=== PATIENT | male | born 1980 | race Caucasian/White ===

== ENCOUNTER 2020-06-10 19:03 | Inpatient (IN) | payer MEDICAID ==
[~2020-06-10] VITALS: Ht 170.2 cm; Wt 159.7 kg
[2020-06-10 20:10] LABS: BASOPHILS % 0.6 % (0.0-2.0); EOSINOPHILS % 4.2 % (0.0-5.0); HEMATOCRIT. 39.9 % (42.0-52.0); HEMOGLOBIN. 13.2 g/dL (14.0-18.0); LYMPHOCYTES % 16.9 % (20.0-50.0); MEAN CORPUSCULAR HEMOGLOBIN 27.9 pg (28.0-32.0); MEAN CORPUSCULAR VOLUME 84.4 fL (80.0-94.0); MEAN PLATELET VOLUME 8.4 fl (7.4-10.4); MONOCYTES % 5.9 % (2.0-8.0); NEUTROPHILS % 72.4 % (40.0-76.0); PLATELET 268 x1000/uL (130-400); RED BLOOD CELL COUNT 4.73 mill/uL (4.7-6.1); RED CELL DISTRIBUTION WIDTH 14.3 % (11.6-14.6)
[2020-06-10 20:20] LABS: CHLORIDE 107 mEq/L (98-107)
[2020-06-10 20:23] LABS: ETHANOL BLOOD < 10 mg/dL
[2020-06-10] MEDS ORDERED: HYDRALAZINE 20MG/ML VIAL IV ONE (20:30)
[2020-06-10] MEDS ORDERED: HYDRALAZINE HCL 10MG TABLET PO ONE (23:00)
[2020-06-11] VITALS (13 sets, daily range): BP systolic 120–160; BP diastolic 61–98
[2020-06-11] MEDS ORDERED: MAGNESIUM/ALUMINUM HYDROXIDE/SIMETHICONE 30ML UDC PO PRN
[2020-06-11] MEDS ORDERED: ACETAMINOPHEN 325MG TABLET PO PRN
[2020-06-11] MEDS ORDERED: DOCUSATE SODIUM 100MG CAPSULE PO PRN
[2020-06-11] MEDS ORDERED: IPRATROPIUM/ALBUTEROL 0.5-3(2.5)MG/3ML NEB HHN PRN
[2020-06-11] MEDS ORDERED: ONDANSETRON HCL 4MG/2ML INJ IV PRN
[2020-06-11] MEDS ORDERED: GUAIFENESIN 200MG/10ML SUGAR FREE UDC PO PRN
[2020-06-11] MEDS ORDERED: DIPHENHYDRAMINE 50MG/ML VIAL IV PRN
[2020-06-11] MEDS ORDERED: CLONIDINE 0.1MG TABLET PO PRN
[2020-06-11] MEDS ORDERED: HYDROCODONE/ACETAMINOPHEN 5/325MG TABLET PO PRN
[2020-06-11] MEDS ORDERED: MORPHINE SULFATE 2 MG/ML CPJ (NOT FOR IM USE) IV PRN
[2020-06-11] MEDS ORDERED: LORAZEPAM 2MG/ML CPJ IV PRN
[2020-06-11] MEDS ORDERED: HYDRALAZINE 20MG/ML VIAL IV PRN
[2020-06-11 00:35] LABS: CLARITY URINE CLEAR (CLEAR); COLOR URINE YELLOW (YELLOW); KETONES URINE NEGATIVE (NEGATIVE); LEUKOCYTE ESTERASE URINE NEGATIVE (NEGATIVE); NITRITE URINE NEGATIVE (NEGATIVE); OCCULT BLOOD URINE NEGATIVE (NEGATIVE); PROTEIN URINE NEGATIVE (NEGATIVE); SPECIFIC GRAVITY URINE 1.011 (1.005-1.030); UROBILINOGEN URINE 0.2 E.U./dL (0.2-1.0)
[2020-06-11 00:53] LABS: *AMPHETAMINES SCREEN URINE NEGATIVE (NEGATIVE); *BARBITURATES SCREEN URINE NEGATIVE (NEGATIVE); *BENZODIAZEPINES SCREEN URINE NEGATIVE (NEGATIVE); *COCAINE SCREEN URINE NEGATIVE (NEGATIVE)
[2020-06-11 00:54] LABS: CANNABINOID URINE SCREEN NEGATIVE (NEGATIVE); METHADONE URINE SCREEN NEGATIVE (NEGATIVE); OPIATES URINE SCREEN NEGATIVE (NEGATIVE); PHENCYCLIDINE URINE SCREEN NEGATIVE (NEGATIVE)
[2020-06-11] MEDS: SODIUM CHLORIDE 0.9% INJ 3ML FLUSH IVF SCH ×3 (05:46→20:55)
[2020-06-11] MEDS ORDERED: PNEUMOCOCCAL 23-VAL P-SAC VAC 0.5 ML IM ONE (08:00)
[2020-06-11] MEDS: ENOXAPARIN 40MG/0.4ML SYR SUBCUT SCH ×2 (08:27→20:54)
[2020-06-11] MEDS ORDERED: INFLUENZA VACCINE 05/PF 0.5 ML VIAL IM ONE (10:00)
[2020-06-11 10:51] LABS: BASOPHILS % 0.5 % (0.0-2.0); EOSINOPHILS % 4.2 % (0.0-5.0); HEMATOCRIT. 41.2 % (42.0-52.0); HEMOGLOBIN. 13.7 g/dL (14.0-18.0); LYMPHOCYTES % 15.4 % (20.0-50.0); MEAN CORPUSCULAR HEMOGLOBIN 28.2 pg (28.0-32.0); MEAN CORPUSCULAR VOLUME 84.6 fL (80.0-94.0); MEAN PLATELET VOLUME 8.9 fl (7.4-10.4); NEUTROPHILS % 75.9 % (40.0-76.0); PLATELET 274 x1000/uL (130-400); RED BLOOD CELL COUNT 4.86 mill/uL (4.7-6.1); RED CELL DISTRIBUTION WIDTH 14.8 % (11.6-14.6)
[2020-06-11] MEDS: HYDROCHLOROTHIAZIDE 25MG TABLET PO SCH (11:14)
[2020-06-11 11:29] LABS: CHLORIDE 104 mEq/L (98-107)
[2020-06-11 11:36] LABS: CREATINE KINASE 99 IU/L (39-308)
[2020-06-11 11:40] LABS: CREATINE KINASE MB FRACTION < 1.0 ng/mL (0.5-3.6)
[2020-06-11] MEDS: POTASSIUM CHLORIDE 20MEQ TABLET SR PO SCH (12:06)
[2020-06-11] MEDS: FUROSEMIDE 40MG/4ML VIAL IVP SCH (12:06)
[2020-06-11] MEDS: AMLODIPINE 5MG TABLET PO SCH ×2 (12:07→16:24)
[2020-06-11 16:35] LABS: CREATINE KINASE 102 IU/L (39-308)
[2020-06-11 16:36] LABS: CREATINE KINASE MB FRACTION < 1.0 ng/mL (0.5-3.6)
[2020-06-12] VITALS (9 sets, daily range): BP systolic 107–153; BP diastolic 55–101
[2020-06-12] MEDS: SODIUM CHLORIDE 0.9% INJ 3ML FLUSH IVF SCH ×2 (05:06→14:00)
[2020-06-12 07:08] LABS: BASOPHILS % 0.6 % (0.0-2.0); EOSINOPHILS % 4.3 % (0.0-5.0); HEMATOCRIT. 43.2 % (42.0-52.0); HEMOGLOBIN. 14.6 g/dL (14.0-18.0); LYMPHOCYTES % 15.8 % (20.0-50.0); MEAN CORPUSCULAR HEMOGLOBIN 28.9 pg (28.0-32.0); MEAN CORPUSCULAR VOLUME 85.3 fL (80.0-94.0); MEAN PLATELET VOLUME 8.4 fl (7.4-10.4); MONOCYTES % 6.3 % (2.0-8.0); PLATELET 282 x1000/uL (130-400); RED BLOOD CELL COUNT 5.07 mill/uL (4.7-6.1); RED CELL DISTRIBUTION WIDTH 14.3 % (11.6-14.6)
[2020-06-12 07:43] LABS: CHLORIDE 105 mEq/L (98-107)
[2020-06-12] MEDS: HYDROCHLOROTHIAZIDE 25MG TABLET PO SCH (08:44)
[2020-06-12] MEDS: FUROSEMIDE 40MG/4ML VIAL IVP SCH (08:44)
[2020-06-12] MEDS: ENOXAPARIN 40MG/0.4ML SYR SUBCUT SCH (08:45)
[2020-06-12] MEDS: POTASSIUM CHLORIDE 20MEQ TABLET SR PO SCH (08:45)
[2020-06-12] MEDS: AMLODIPINE 5MG TABLET PO SCH (08:45)
== END 2020-06-12 15:22 | disposition home or self-care (01) | DRG 199 ==
LOC: ER 19:03 → 3WST 23:02 → EDBEDREQ 23:05 → EDBEDREQTM 23:05 → ENRESERV 23:40
PROVIDERS: ADMIT Internal Medicine; ATTEND Internal Medicine
DX: I16.1 Hypertensive emergency (principal); R51.9 Headache, unspecified; I10 Essential (primary) hypertension; E66.01 Morbid (severe) obesity due to excess calories; Z68.43 Body mass index [BMI] 50.0-59.9, adult; H53.8 Other visual disturbances; R60.0 Localized edema; Z71.3 Dietary counseling and surveillance
CPT/HCPCS: 36415; 71045; 80048; 80053; 80061; 80305; 80320; 81003; 82140; 82550; 82553; 83036; 83735; 84443; 84484; 85025; 90686; 90732; 93005; 93306; 93970; 99285; J0360; J1650; J1940; G0480